=== PATIENT | male | born 1960 | race Caucasian/White ===

== ENCOUNTER 2016-12-27 15:38 | Outpatient (CLI) | payer MEDICARE, OTHER ==
[2015-07-24 08:48] VITALS: BP 128/78
== END 2016-12-27 15:40 ==
LOC: LAB 15:38
PROVIDERS: ATTEND Family Medicine
DX: M79.1 Myalgia (principal); I82.4Y2 Acute embolism and thrombosis of unspecified deep veins of left proximal lower extremity
CPT/HCPCS: 36415; 85379; 86038; 86225; 86235

== ENCOUNTER 2017-06-14 14:10 | Emergency (ER) | payer MEDICARE ==
[2017-06-14] MEDS ORDERED: ASPIRIN 81 MG CHEW TAB PO ONE (14:21)
[2017-06-14] MEDS ORDERED: ASPIRIN 81 MG CHEW TAB ONE (14:22)
--- NOTE | 2017-06-14 14:22 | ED Physician Documentation ---
Chest Pain - HISTORIAN Historian: patient - HPI Chief Complaint: Chest Pain Additional Information: has"anxiety attacks" and they feel like a heart attack. He has been worked up mult time. even cardiac cath. given clean bill Rivalroo. Has had left bicep pain x 3 days and started worrying about heart attack, so went to and they sent him here. but he remembers that he has been pulling himself up into tractor past few days. Onset: days ago Timing: gradual onset Duration: waxing, waning Last known Well Date: 06/14/17 Last Known Well Time: 15:23 Last known Well Code/Unknown Code: Known Context: emotional upset Severity: mild Quality: tightness Chest Pain Radiation: arms (hurting left bicep) Chest Pain Signs/Symptoms: denies: nausea, vomiting, diaphoresis, dizziness, dyspnea Worsened By: nothing Relieved By: nothing Further Comments: no - ROS CONST: none MS/LYMPH: none GI/: none EYES/ENT: none SKIN/ENDO: none NEURO/PSYCH: none - PAST HX IN risk factors: hypertension DVT/PE Risk Factors: prior DVT TAD/AAA risk factors: none Neuro deficit: none GI disease: GERD Lung disease: none Surgeries/Procedures: other (ortho) Allergies/Adverse Reactions: Allergies Allergy/AdvReac Type Severity Reaction Status Date / Time No Known Allergies Allergy Verified 03/05/15 07:55 - SOCIAL HX Smoking History: non-smoker Alcohol Use: none Drug Use: none - FAMILY HX Family HX: none - VITAL SIGNS Vital Signs: Vital Signs Temp Pulse Resp BP Pulse Ox 128/78 07/24/15 08:43 - REVIEWED ASSESSMENTS Nursing Assessment Reviewed: Yes Vitals Reviewed: Yes ED Results Lab/Radiology - Orders Orders: ED Orders Category Date Time Status Continuous EKG monitoring Q30M Care 06/14/17 14:21 Ordered Continuous Pulse Oximetry Q30M Care 06/14/17 14:21 Ordered CHEST 1 VIEW [RAD] Stat Exams 06/14/17 14:21 Ordered CBC/PLATELET/DIFF Routine Lab 06/14/17 14:21 Ordered CMP Routine Lab 06/14/17 14:21 Ordered CREATINE KINASE Routine Lab 06/14/17 14:21 Ordered TROPONIN I (cTnI) Stat Lab 06/14/17 14:21 Ordered Aspirin Med 06/14/17 14:21 Once 324 mg PO NOW ONE Oxygen Daily Oxygen 06/14/17 14:30 Ordered EKG WITH COMPARISON Stat Ther 06/14/17 14:21 Ordered Chest Pain Physical Exam - EXAM General Appearance: no acute distress, alert EENT: eye inspection normal, ENT inspection normal, pharynx normal, no signs of dehydration Neck: nml inspection, no carotid bruit. No: JVD present, lymphadenopathy Respiratory: no resp. distress, chest non-tender, nml breath sounds. No: resp.distress CVS: reg. rate & rhythm, no murmur, pulses equal Abdomen: soft, no distension, non-tender Skin: warm/dry, normal color Extremities: non-tender, normal range of motion, no evidence of injury, no edema Neuro: oriented X3, mood/affect nml, cognition normal Discharge Clincal Impression: Other soft tissue disorders related to use, overuse and pressure, left upper arm, Stress reaction causing mixed disturbance of emotion and conduct Referrals: Riley Downey MD [Primary Care Provider] - 2 Days Condition: Good Disposition: 01 HOME, SELF-CARE Decision to Admit: NO Date of Decison to Admit: 06/14/17 Decision Time: 15:23
[2017-06-14 14:34] LABS: BASOPHILS % 0.9 (0.0-1.5); EOSINOPHILS % 4.3 % (0.0-6.8); MEAN CORPUSCULAR HEMOGLOBIN 31.8 pg (28.0-34.0); MEAN CORPUSCULAR VOLUME 92.1 fl (80.0-100.0); MONOCYTES % 5.3 % (0.0-11.0)
[2017-06-14 14:45] LABS: eGFR (African) > 60; eGFR (Non-African) > 60
--- NOTE | 2017-06-14 16:00 | Diagnostic Imaging Report ---
RONNY FERNANDO [facility] [address] [facility].[address] [id number] Report Submission Date: Jun 14, 2017 2:44:57 PM CDT Patient Study Name: ANDREIA WILHELM Date: Jun 14, 2017 2:21:12 PM CDT Modality Type: CR Gender: M Description: CHEST : 62 Institution: [facility] Physician: RONNY FERNANDO Examination: Portable chest History: Chest discomfort Comparison exam: None available Findings: Single view of the chest demonstrates a normal cardiac silhouette. Mild tortuosity of the thoracic aorta. Lung izaguirre without focal infiltrate. No effusion. Osseous structures are appropriate for age. Impression: No acute pulmonary process. Electronically signed on Jun 14, 2017 2:44:57 PM CDT by: Navarro TENORIO
[2017-06-14 16:08] VITALS: BP 142/78
== END 2017-06-14 15:45 | disposition home or self-care (01) ==
LOC: ED 14:10
DX: M70.822 Other soft tissue disorders related to use, overuse and pressure, left upper arm (principal)
CPT/HCPCS: 71010; 80053; 82550; 84484; 85025; 99283; S1016

== ENCOUNTER 2017-07-25 19:00 | Emergency (ER) | payer MEDICARE | END 2017-07-25 19:30 | disposition left against medical advice (07) | LOC: ED 19:00 | DX: Z53.21 Procedure and treatment not carried out due to patient leaving prior to being seen by health care provider (principal) | CPT/HCPCS: 99281 ==

== ENCOUNTER 2017-08-19 12:07 | Outpatient (CLI) | payer MEDICARE ==
--- NOTE | 2017-08-22 13:32 | CONSULTATION REPORT ---
REFERRING PHYSICIAN: Dr. Riley Downey CONSULTING PHYSICIAN: Nate Pina MD Dear Dr. Downey: HISTORY OF PRESENT ILLNESS: Thank you for your consultation regarding Danielito Richardson. This is a 57-year-old disabled white male who comes in with a complaint of 2 to 3 years of left anterior chest pain. It is dull. It is always present. It is worse with use. Associated symptoms are an occasional feeling of fluttering in the left anterior chest as he points over his left breast and it can occur at night or during the day. On occasion what follows is a thump feeling and a feeling of tightness in his throat and a warm feeling throughout his body and he gets fecal urgency. He gets no diarrhea or abdominal pain. It has brought him to the emergency room on multiple occasions. He has seen Dr. Griffith. He has had a coronary angiography and was told that it is not of a cardiac origin. He has an underlying anxiety disorder and he cannot tell which is the chicken or the egg. He tells me that his mother has lupus. PAST MEDICAL HISTORY: 1. 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 2. Hypertension. PRESENT MEDICATIONS: 1. BuSpar, which he is not taking. 2. Diclofenac. 3. Alprazolam. 4. Omeprazole. 5. Benazepril. 6. Atorvastatin. He was given Medrol with no improvement. SOCIAL HISTORY: The patient quit smoking 8 years ago. He drinks about 12 alcoholic beverages daily. He is from his . He has a girlfriend. REVIEW OF SYSTEMS: He has got double or blurred vision, runny nose, occasional shortness of breath , swelling of his legs, occasional swelling of the arms after prolonged activity such as putting in a post, heartburn, headaches, dizziness, muscle spasms, excessive worries, anxiety, positive for losing his temper, depression, agitation. Otherwise, he has not noticed any changes in his weight. He has no fatigue. He has had no fevers. He has had no red painful eyes. He has had no photosensitivity. No color changes in his hands or feet in the cold. He has had no nausea, vomiting, diarrhea, dark stools or bloody stools. No urinary symptoms. PHYSICAL EXAMINATION: GENERAL: On exam, he looks well. VITAL SIGNS: Height: 6 feet 4 inches. Weight: 306. T: 98.6, R: 12, heart rate of 76, BP: 180/105. HEENT: Grossly unremarkable. CHEST: He has no reproducible point tenderness. No chest deformity. No erythema. LUNGS: Clear. HEART: Regular rhythm. ABDOMEN: Soft. VASCULAR EXAM: No edema or cyanosis. PERIPHERAL JOINTS: DIPs, PIPs, MCPs, wrists, elbows, shoulders, hips, knees, ankles, and feet are unremarkable. He has no nail pitting. SKIN: No skin rashes. IMPRESSION: Atypical chest pain. This is not really presenting as any well-defined syndrome , such as Tietze syndrome or SAPHO syndrome or even clearly costochondritis. His associated symptoms are interesting and more suggestive of possible autonomic neuropathy. PLAN: He has a blood pressure cuff at home. I have asked him to take his blood pressure during these events. Apparently, he presents to the ER after these events have happened. His girlfriend apparently has some nursing background and she can be of assistance. He is going to call me in 4 weeks with reports of events and concomitant blood pressure readings. If all else fails, we could consider a trial of low-dose imipramine twice a day and see if he has some improvement. I did review his present chart at [facility]. Note that sedimentation rates in the past have been normal. Rheumatoid factor negative. MARIBEL profile is negative. Labs, including CBC and CMP, are unremarkable. Thank you very much for allowing me to participate in the care of your patient. Best regards, cc: Dr. Riley TENORIO
== END 2017-08-19 12:15 ==
LOC: RHEU 12:07
PROVIDERS: ATTEND Internal Medicine
DX: R07.89 Other chest pain (principal); F41.9 Anxiety disorder, unspecified; I10 Essential (primary) hypertension; Z84.89 Family history of other specified conditions
CPT/HCPCS: 99213; 99214

== ENCOUNTER 2017-09-05 19:06 | Emergency (ER) | payer MEDICARE ==
--- NOTE | 2017-09-05 19:13 | ED Physician Documentation ---
General Adult - HISTORIAN Historian: patient - HPI Stated Complaint: chest pain Chief Complaint: General Adult Onset: hours Timing: still present Severity: moderate Further Comments: yes (Pt is a 57 yo male with pain in his upper L chest. This has been a chronic complaint, occurring intermittently for more than a year. Pt had a cardiac cath about a year and a half ago that showed good results. Pt also has anxiety and "eats xanax all the time" to control this. Pt had some sob with the chest pain and some diaphoresis and some slight nausea. Pt says he is "always sweaty.") - ROS CONST: no problems EYES/ENT: none CVS/RESP: chest pain, shortness of breath GI/: nausea (mild) MS/SKIN/LYMPH: none NEURO/PSYCH: anxiety - PAST HX Past History: other (Anxiety, GERD, HLD, HTN, DVT, PE, Rattle snake bite age 17) Allergies/Adverse Reactions: Allergies Allergy/AdvReac Type Severity Reaction Status Date / Time No Known Allergies Allergy Verified 09/05/17 20:22 Home Medications: Ambulatory Orders Medication Instructions Recorded Potassium Chloride [Klor-Con 10] 10 meq PO DAILY #30 tablet.er 09/05/17 - SOCIAL HX Smoking History: quit greater than 1 year - FAMILY HX Family History: No - VITAL SIGNS Vital Signs: Vital Signs Temp Pulse Resp BP Pulse Ox 142/78 06/14/17 15:45 - REVIEWED ASSESSMENTS Nursing Assessment Reviewed: Yes Vitals Reviewed: Yes Progress - Progress Progress: ASA 325 mg po x 1 KCl 20 mEQ po x 1 in ER Rx KCl 10 mEq po qd f/u pcp re mild hypokalemia; consider Holter monitor for pt's report of "fluttering or vibration in chest." General Adult Physical Exam - PHYSICAL EXAM GENERAL APPEARANCE: mild distress (anxious) EENT: pharynx normal NECK: normal inspection, supple RESPIRATORY: no resp distress, chest non-tender, breath sounds normal CVS: reg rate & rhythm, heart sounds normal ABDOMEN: soft, no organomegaly, normal bowel sounds BACK: normal inspection, no CVA tenderness SKIN: warm/dry, normal color EXTREMITIES: non-tender, normal range of motion, no evidence of injury NEURO: oriented X3, motor nml, sensation nml, other (mild anxiety) Discharge Clincal Impression: chest pain/anxiety Prescriptions: Potassium Chloride [Klor-Con 10] 10 meq PO DAILY #30 tablet.er Referrals: Riley Downey MD [Primary Care Provider] - Condition: Stable Disposition: 01 HOME, SELF-CARE Decision to Admit: NO Decision Time: 22:45
[2017-09-05] MEDS: ASPIRIN 81 MG CHEW TAB PO ONE (19:45)
[2017-09-05 19:51] LABS: BASOPHILS % 0.5 (0.0-1.5); EOSINOPHILS % 5.1 % (0.0-6.8); MEAN CORPUSCULAR HEMOGLOBIN 32.7 pg (28.0-34.0); MEAN CORPUSCULAR VOLUME 92.5 fl (80.0-100.0); MONOCYTES % 4.9 % (0.0-11.0); NEUTROPHILS # 2.3 # k/uL (1.4-7.7)
[2017-09-05 20:10] LABS: eGFR (African) > 60; eGFR (Non-African) > 60
[2017-09-05] MEDS: POTASSIUM CHLORIDE 20 MEQ TABLET.ER PO ONE (20:47)
[2017-09-05 21:28] VITALS: BP 151/85
--- NOTE | 2017-09-05 23:31 | Diagnostic Imaging Report ---
CAT ESPINO [facility] [address] [facility] [address] [place] [address]. 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 The heart and mediastinal structures are normal. The bony thorax is unremarkable. No pneumothorax or pleural effusion is seen. Impression: No acute pulmonary disease Hyperinflation Electronically signed on Sep 05, 2017 8:57:54 PM SCALER PACKER by: Mo TENORIO
== END 2017-09-05 21:26 | disposition home or self-care (01) ==
LOC: ED 19:06
DX: R07.89 Other chest pain (principal); F41.9 Anxiety disorder, unspecified
CPT/HCPCS: 71010; 80053; 82550; 82553; 83880; 84484; 85025; 85379; 93005; A9270; 99283; S1016

== ENCOUNTER 2017-09-08 06:59 | Emergency (ER) | payer MEDICARE ==
--- NOTE | 2017-09-08 07:07 | ED Physician Documentation ---
Chest Pain - HISTORIAN Historian: patient - HPI Stated Complaint: chest pain, HTN, anxiety Chief Complaint: General Adult Onset: other (for over 2 years ) Timing: other (on and off ) Duration: waxing, waning Last known Well Date: 09/08/17 Last Known Well Time: 08:00 Last known Well Code/Unknown Code: Unknown Context: other (he states that he cannot relate to any situations ) Severity: moderate (when pain happens ) Quality: pressure, sharp, stabbing Chest Pain Radiation: arms (once in a while but not all the time ) Chest Pain Signs/Symptoms: palpitations ("at times " ). denies: nausea, vomiting, diaphoresis, dizziness, tachycardia, hypotension Worsened By: nothing Relieved By: nothing, other (Xanax ) Further Comments: yes (chest pain and high blood pressure. He reports that he was just here a few days ago and he was told that he should follow up with Dr Downey (His PCP) although he has not made an appt b/c his phone is not working right. He states he has anxiety but when he gets these chest pains he is not always stressed out so he does not believe that this is from anxiety. He did see a Counter Sales Representative a year ago and was told he was "ok" although he reports "something is wrong and someone needs to find out what it is" He has seen a psychatrist a few years ago but stopped meds b/c he didnt like how they made him feel. He states that this am the pain started again while sitting and making out bills but he didnt feel stressed and his blood pressure when he "started to feel funny" was 286/149 "or something like that" he reports he then did take a xanax but started to come on over to the hospital b/c he was sure something was "bad wrong" . He reports now his pain is 3 on 1/10 scale but states "that could change any time") - ROS CONST: none MS/LYMPH: other (reports he did have some muscle cramps last night ) GI/: denies: vomiting, nausea, diarrhea EYES/ENT: denies: problems with vision SKIN/ENDO: denies: rash NEURO/PSYCH: anxiety. denies: headache - PAST HX MD risk factors: hypertension, hyperlipidemia TAD/AAA risk factors: none Neuro deficit: none GI disease: GERD Lung disease: none Surgeries/Procedures: cardiac cath Immunizations: UTD Allergies/Adverse Reactions: Allergies Allergy/AdvReac Type Severity Reaction Status Date / Time No Known Allergies Allergy Verified 09/08/17 07:38 Home Medications: Ambulatory Orders Medication Instructions Recorded Potassium Chloride [Klor-Con 10] 10 meq PO DAILY #30 tablet.er 09/05/17 Aspirin [Ginette] 81 mg PO DAILY 09/08/17 - SOCIAL HX Smoking History: non-smoker Alcohol Use: none Drug Use: none - FAMILY HX Family HX: none - VITAL SIGNS Vital Signs: Vital Signs Temp Pulse Resp BP Pulse Ox 151/85 09/05/17 21:26 - REVIEWED ASSESSMENTS Nursing Assessment Reviewed: Yes Vitals Reviewed: Yes Chest Pain Physical Exam - EXAM General Appearance: alert Neck: nml inspection Respiratory: no resp. distress, chest non-tender, nml breath sounds, resp.distress CVS: reg. rate & rhythm, no murmur, no gallop Abdomen: soft, normal bowel sounds Skin: warm/dry, normal color Extremities: non-tender, normal range of motion Neuro: oriented X3, CN's nml as tested, motor nml, sensation nml, mood/affect nml, cognition normal Discharge Clincal Impression: Chest pain Qualifiers: Chest pain type: other chest pain Qualified Code(s): R07.89 - Other chest pain ; R07.8 - Other chest pain Referrals: Riley Downey MD [Primary Care Provider] - 2 Days Additional Instructions: Follow up with Dr Downey in 1-2 days to get a work up on current symptoms and concerns Return to ER for any changes in symptoms or concerns Labs and ER work up are normal Increase fluids Condition: Stable Disposition: 01 HOME, SELF-CARE Decision to Admit: NO Date of Decison to Admit: 09/08/17 Decision Time: 08:25
[2017-09-08 07:42] LABS: BASOPHILS % 0.8 (0.0-1.5); EOSINOPHILS % 4.4 % (0.0-6.8); MEAN CORPUSCULAR HEMOGLOBIN 32.6 pg (28.0-34.0); MEAN CORPUSCULAR VOLUME 92.6 fl (80.0-100.0); MONOCYTES % 4.5 % (0.0-11.0); NEUTROPHILS # 2.3 # k/uL (1.4-7.7)
[2017-09-08 07:59] LABS: eGFR (African) > 60; eGFR (Non-African) > 60
[2017-09-08 08:46] VITALS: BP 157/88
== END 2017-09-08 08:38 | disposition home or self-care (01) ==
LOC: ED 06:59
DX: R07.9 Chest pain, unspecified (principal); I10 Essential (primary) hypertension; F41.9 Anxiety disorder, unspecified
CPT/HCPCS: 80053; 84484; 85025; 99282; 99283; S1016

== ENCOUNTER 2019-07-17 07:44 | Outpatient (CLI) | payer MEDICARE ==
[2019-07-17 09:27] LABS: HDL 47 mg/dL (>40); eGFR (Non-African) > 60
== END 2019-07-17 07:49 ==
LOC: LAB 07:44
PROVIDERS: ATTEND Internal Medicine Cardiovascular Disease
DX: E78.5 Hyperlipidemia, unspecified (principal); I10 Essential (primary) hypertension
CPT/HCPCS: 36415; 80053; 80061; 84443; 85027